=== PATIENT | male | born 1990 | race Caucasian/White ===

== ENCOUNTER 2020-05-08 15:05 | Inpatient (IN) | payer OTHER ==
[~2020-05-08] VITALS: Ht 182.9 cm; Wt 74.8 kg
[2020-05-08] MEDS ORDERED: ONDANSETRON 4 MG/2 ML VIAL ONE ×2 (15:11→15:15)
[2020-05-08] MEDS ORDERED: LORAZEPAM 2 MG/1 ML VIAL ONE ×2 (15:14→15:39)
[2020-05-08] MEDS ORDERED: IV NORMAL SALINE 1000 ML BAG IV ONE ×2 (15:15→16:15)
[2020-05-08] MEDS ORDERED: ONDANSETRON 4 MG/2 ML VIAL IV ONE (15:15)
--- NOTE | 2020-05-08 15:23 | NUR ---
PT IS IN ROOM #2A. DR GARZA EVALUATED THE PT.
[2020-05-08] MEDS ORDERED: LORAZEPAM 2 MG/1 ML VIAL IV ONE ×2 (15:30→15:45)
[2020-05-08 15:34] LABS: BASOPHILS % (AUTO) 0.2 % (0.0-2.0); EOSINOPHILS % (AUTO) 0.2 % (0.0-7.0); HEMATOCRIT 49.7 % (36.7-47.1); HEMOGLOBIN 16.9 g/dL (12.5-16.3); LYMPHOCYTES # (AUTO) 0.9 K/uL (20.0-40.0); LYMPHOCYTES % (AUTO) 5.8 % (20.5-51.5); MEAN CORPUSCULAR HEMOGLOBIN 29.8 uug (23.8-33.4); MEAN CORPUSCULAR HGB CONC 34 g/dL (32.5-36.3); MEAN CORPUSCULAR VOLUME 87.9 fL (73.0-96.2); MONOCYTES # (AUTO) 0.9 K/uL (2.0-10.0); MONOCYTES % (AUTO) 5.9 % (0.0-11.0); NEUTROPHILS # (AUTO) 13.9 K/uL (1.8-8.9); NEUTROPHILS % (AUTO) 87.9 % (38.5-71.5); PLATELET COUNT (AUTO) 258 K/uL (152-348); RED BLOOD CELL COUNT(AUTO) 5.66 MIL/uL (4.06-5.63); WHITE BLOOD COUNT (AUTO) 15.8 K/uL (3.6-10.2)
[2020-05-08 15:57] LABS: THYROID STIMULATING HORMONE 1.214 mIU/mL (0.358-3.740)
[2020-05-08 15:59] LABS: ALANINE AMINOTRANSFERASE 24 U/L (16-63); ALKALINE PHOSPHATASE 100 U/L (50-136); ASPARTATE AMINOTRANSFERASE 44 U/L (15-37); BILIRUBIN,DIRECT 0.4 mg/dL (0.0-0.2); BILIRUBIN,TOTAL 2.3 mg/dL (0.2-1.0); CARBON DIOXIDE 22 mmol/L (21-32); CHLORIDE 101 mmol/L (98-107); CREATININE 2.7 mg/dL (0.6-1.3); ETHANOL < 3 MG/DL (0-0); GLUCOSE 98 mg/dL (74-106); TOTAL PROTEIN, SERUM 9.6 g/dL (6.4-8.2); UREA NITROGEN, BLOOD 28 mg/dL (7-18)
--- NOTE | 2020-05-08 16:02 | NUR ---
PT BECOME RESTLESS. PT WAS MEDICATED ACCORDING TO DR GARZA ORDERS. PT TOLERATED TO MEDICATION WITHOUT COMPLICATIONS.
[2020-05-08 16:17] LABS: CREATINE KINASE, TOTAL 942 U/L (39-308)
[2020-05-08 17:00] VITALS: BP 102/57
--- NOTE | 2020-05-08 17:22 | NUR ---
PT IS SLEEPING IN BED COMFORTABLY. NO S/S OF ACUTE DISTRESS AT THIS TIME. REPORT WAS GIVEN TO AIDEE ZULUAGA ON M/S FLOOR. PT WAS TRANSFERED TO ROOM #327.
--- NOTE | 2020-05-08 17:30 | NUR ---
Received pt. resting in bed on 4 L of oxygen. pt. is unable to respond to name but does respond to touch. Pt. is not oriented unable to answer questions and has garbled speech. IV in L wrist 18 gauge intact patent saline lock. Pt. did not allow us to assess body. Were able to take vital signs. pt. had episode of agitation but then fell asleep. Vital signs stable within normal limits. doctor aware of pt behavior and awaiting admission orders.
[2020-05-08 20:41] VITALS: BP 113/66
--- NOTE | 2020-05-08 20:54 | NUR ---
RECEIVED PATIENT IN BED ASLEEP BUT AROUSABLE. PATIENT THEN LATER WAKES UP COMPLAIN OF HUNGER, GIVEN SANDWICH AND SODA, AND INSTRUCTED TO STAY IN HIS ROOM. PATIENT HAS EPISODE OF ROOMING AROUND THE HALLWAYS, AND GOES TO OTHER PATIENT ROOMS, CONT TO MONITOR. NOTIFY DR CARRERA.
[2020-05-08] MEDS ORDERED: LORAZEPAM 2 MG/1 ML VIAL IV PRN (21:00)
[2020-05-08] MEDS ORDERED: HYDROCODONE/APAP 5-325MG TABLET PO PRN (21:00)
[2020-05-08] MEDS ORDERED: ACETAMINOPHEN 325 MG TABLET PO PRN (21:45)
[2020-05-08] MEDS ORDERED: ONDANSETRON 4 MG/2 ML VIAL IV PRN (21:45)
[2020-05-08] MEDS ORDERED: ZOLPIDEM 5 MG TABLET PO PRN (21:45)
--- NOTE | 2020-05-08 22:00 | NUR ---
PATIENT KEPT DISCONNECTING HIMSELF FROM HIS IV FLUIDS. PATIENT ALSO KEPT MOVING HIS ARMS UP AND DOWN RISK FOR INJURY FROM IV POLE. PATIENT IV HYDRATION IS ON HOLD AT THIS TIME, WILL CONNECT PATIENT WHEN HE GOES TO BED.
[2020-05-08] MEDS: IV 1/2NS 1000 ML 1,000 ML IV PRN (23:10)
--- NOTE | 2020-05-09 | NUR ---
PATIENT WAS MEDICATED FOR PAIN AND TO HELP FALL ASLEEP. PATIENT REFUSED TO STAY IN BED, IN HIS ROOM TALKING TO SELF, AND PATIENT HAS SOME HALLUCINATIONS, REDIRECT BEHAVIOR, CONT TO HOLD IV HYDRATION. PATIENT STILL RESTLESS IN BED AND ON HIS ROOM. CONT TO MONITOR.
--- NOTE | 2020-05-09 01:49 | NUR ---
PATIENT STILL AWAKE, MEDICATE PATIENT WITH AMBIEN, WILL CONT TO MONITOR.
--- NOTE | 2020-05-09 02:30 | NUR ---
PATIENT FINALLY FALL ASLEEP,STILL WITH EPISODE OF RESTLESS IN BED, UNABLE TO GIVE IV HYDRATION RISK FOR INJURY. PATIENT DRINKS FLUIDS ADEQUATELY, CONT TO MONITOR.
[2020-05-09 05:52] VITALS: BP 111/60
[2020-05-09] MEDS: PANTOPRAZOLE SODIUM 40 MG TABLET.DR PO SCH (06:04)
--- NOTE | 2020-05-09 06:38 | NUR ---
PATIENT REMOVED HIS BED SHEETS AND BLANKET PREFER TO SLEEP ON MATTRESS WITHOUT COVERS. PATIENT GETS AGITATED WHEN TRIES TO FIXED HIS BED, PREFER TO SLEEP AT THIS TIME. PATIENT STILL HAVE RESTLESSNESS, JERKING HIS ARMS UP AND DOWN, AND TALKING TO SELF. PATIENT CONTINUE TO MONITOR.
[2020-05-09 07:17] LABS: BASOPHILS % (AUTO) 0.4 % (0.0-2.0); EOSINOPHILS # (AUTO) 0.2 K/uL (0.0-0.7); EOSINOPHILS % (AUTO) 2.5 % (0.0-7.0); HEMATOCRIT 41.7 % (36.7-47.1); HEMOGLOBIN 14.5 g/dL (12.5-16.3); LYMPHOCYTES # (AUTO) 1.6 K/uL (20.0-40.0); LYMPHOCYTES % (AUTO) 24.4 % (20.5-51.5); MEAN CORPUSCULAR HEMOGLOBIN 30.3 uug (23.8-33.4); MEAN CORPUSCULAR HGB CONC 35 g/dL (32.5-36.3); MEAN CORPUSCULAR VOLUME 87.3 fL (73.0-96.2); MONOCYTES # (AUTO) 0.7 K/uL (2.0-10.0); MONOCYTES % (AUTO) 10.5 % (0.0-11.0); NEUTROPHILS # (AUTO) 4.2 K/uL (1.8-8.9); NEUTROPHILS % (AUTO) 62.2 % (38.5-71.5); PLATELET COUNT (AUTO) 194 K/uL (152-348); RED BLOOD CELL COUNT(AUTO) 4.78 MIL/uL (4.06-5.63); WHITE BLOOD COUNT (AUTO) 6.7 K/uL (3.6-10.2)
[2020-05-09 07:48] LABS: CREATININE 1.4 mg/dL (0.6-1.3); MAGNESIUM 2.4 mg/dL (1.8-2.4); PHOSPHOROUS 4.1 mg/dL (2.5-4.9); POTASSIUM 3.7 mmol/L (3.5-5.1); TOTAL PROTEIN, SERUM 7.8 g/dL (6.4-8.2)
--- NOTE | 2020-05-09 10:30 | NUR ---
Received pt. resting in bed. pt. responds to name and to touch. Pt. is confused, in and out of sleep. speech is clear. pt. on room air saturating well. IV in L wrist 18 gauge intact patent saline lock. pt. is refusing fluids and removes himself form IV tubing. will inform safety measures in place. call light within reach. will continue to monitor pt.
[2020-05-09 12:00] VITALS: BP 102/62
[2020-05-09 16:00] VITALS: BP 107/64
--- NOTE | 2020-05-09 18:35 | NUR ---
IV leaking new IV inserted, rt forearm 20 gauge. Patient agreed to fluids, prescribed fluids running, patient calm and cooperative,. Patient understands plan of care. Safety measures in place, bed in the lowest position and locked call light and belonging within reach. Will endorse the patient to the oncoming shift.
--- NOTE | 2020-05-09 19:20 | NUR ---
Received patient lying in bed asleep. AOx4. In no acute distress. Denies any pain or SOB. IV site on right FA intact and patent. IVF infusing. Safety measure initiated and call mathews within reached.
[2020-05-09 21:23] VITALS: BP 93/57
[2020-05-10] MEDS: IV 1/2NS 1000 ML 1,000 ML IV PRN (01:15)
[2020-05-10 06:08] VITALS: BP 90/47
[2020-05-10] MEDS: PANTOPRAZOLE SODIUM 40 MG TABLET.DR PO SCH (06:10)
[2020-05-10 06:33] LABS: BASOPHILS % (AUTO) 0.7 % (0.0-2.0); EOSINOPHILS # (AUTO) 0.2 K/uL (0.0-0.7); EOSINOPHILS % (AUTO) 3.3 % (0.0-7.0); HEMATOCRIT 40.3 % (36.7-47.1); HEMOGLOBIN 13.7 g/dL (12.5-16.3); LYMPHOCYTES # (AUTO) 1.8 K/uL (20.0-40.0); LYMPHOCYTES % (AUTO) 34.7 % (20.5-51.5); MEAN CORPUSCULAR HEMOGLOBIN 29.7 uug (23.8-33.4); MEAN CORPUSCULAR HGB CONC 34 g/dL (32.5-36.3); MEAN CORPUSCULAR VOLUME 87.4 fL (73.0-96.2); MONOCYTES # (AUTO) 0.5 K/uL (2.0-10.0); MONOCYTES % (AUTO) 8.8 % (0.0-11.0); NEUTROPHILS # (AUTO) 2.7 K/uL (1.8-8.9); NEUTROPHILS % (AUTO) 52.5 % (38.5-71.5); PLATELET COUNT (AUTO) 164 K/uL (152-348); RED BLOOD CELL COUNT(AUTO) 4.61 MIL/uL (4.06-5.63); WHITE BLOOD COUNT (AUTO) 5.1 K/uL (3.6-10.2)
--- NOTE | 2020-05-10 06:33 | NUR ---
Slept well last night. In no acute distress. Denies any pain or SOB. IV site on right FA intact and patent. IVF infusing. Needs assessed and attended to. Safety measure maintained and call mathews within reached.
[2020-05-10 06:53] LABS: BILIRUBIN,TOTAL 1.5 mg/dL (0.2-1.0); CREATININE 1.1 mg/dL (0.6-1.3); PHOSPHOROUS 3.1 mg/dL (2.5-4.9); POTASSIUM 3.4 mmol/L (3.5-5.1); TOTAL PROTEIN, SERUM 6.9 g/dL (6.4-8.2)
[2020-05-10 11:30] VITALS: BP 98/64
[2020-05-10] MEDS ORDERED: POTASSIUM CHLORIDE 20 MEQ TAB.PRT.SR PO ONE (12:00)
[2020-05-10 15:54] VITALS: BP 95/66
--- NOTE | 2020-05-10 16:16 | NUR ---
dc orders received noted and carried out,dc heplock per md orders,dc instruction and education given to the pt,pt left the facility via private car in stable condition
== END 2020-05-10 16:32 | disposition home or self-care (01) | DRG 682 ==
LOC: ER 15:08 → MEDSURG3 17:18
PROVIDERS: ADMIT Hospitalist; ATTEND Hospitalist
DX: N17.0 Acute kidney failure with tubular necrosis (principal); G92 Toxic encephalopathy; M62.82 Rhabdomyolysis; E86.0 Dehydration; F41.9 Anxiety disorder, unspecified; Z91.19 Patient's noncompliance with other medical treatment and regimen; F19.11 Other psychoactive substance abuse, in remission
CPT/HCPCS: 36415; 83735; 84100; 84443; 85025; A4663; G0378; G0480; J2060; J2405; J3490; J7030